=== PATIENT | male | born 1945 | race Caucasian/White ===

== ENCOUNTER 2024-07-23 04:48 | Day surgery (SDC) | payer OTHER ==
[2024-07-14 12:44] VITALS: BMI 25.7
[2024-07-23 08:25] VITALS: TEMP 97.9
[2024-07-23 08:37] VITALS: PULSE 62; RESP 18
[2024-07-23 08:59] VITALS: BP 132/69
== END 2024-07-23 09:00 | disposition home or self-care (01) ==
LOC: JASU-ENDO 04:48
PROVIDERS: ATTEND Internal Medicine Gastroenterology
PROC: 0DJD8ZZ Inspection of Lower Intestinal Tract, Via Natural or Artificial Opening Endoscopic (ICD-10-PCS; principal; 2024-07-23 08:00)
DX: Z12.11 Encounter for screening for malignant neoplasm of colon (principal); K55.20 Angiodysplasia of colon without hemorrhage; K64.8 Other hemorrhoids; K57.30 Diverticulosis of large intestine without perforation or abscess without bleeding; Z80.0 Family history of malignant neoplasm of digestive organs